=== PATIENT | male | born 1995 | race Caucasian/White ===

== ENCOUNTER 2019-09-22 02:59 | Emergency (ER) | payer OTHER ==
--- NOTE | 2019-09-22 03:55 | ER ---
Nurse's Notes [facility] Name: Tank Aviles Age: 23 yrs Sex: Male : 1995 Arrival Date: 09/22/2019 Time: 03:02 Bed 17 Private MD: Diagnosis: Otitis media, unspecified, bilateral;Otitis externa;Otitis externa in other diseases classified elsewhere, bilateral Presentation: 09/22 03:10 Presenting complaint: Patient states: he woke up yesterday with L ear pain which has aa1 gotten significantly worse this morning and now both ears are bothering him. Transition of care: patient was not received from another setting of care. Onset of symptoms was September 21, 2019. Risk Assessment: Do you want to hurt yourself or someone else? Patient reports no desire to harm self or others. Initial Sepsis Screen: Does the patient meet any 2 criteria? No. Patient's initial sepsis screen is negative. Does the patient have a suspected source of infection? No. Patient's initial sepsis screen is negative. Care prior to arrival: None. 03:10 Method Of Arrival: Ambulatory aa1 03:10 Acuity: MARKOS 4 aa1 Triage Assessment: 03:18 General: Appears in no apparent distress. comfortable, Behavior is calm, cooperative, aa1 appropriate for age. Historical: - Allergies: 03:18 No Known Allergies; aa1 - Home Meds: 03:18 None [Active]; aa1 - PMHx: 03:18 None; aa1 - PSHx: 03:18 None; aa1 - Immunization history:: Flu vaccine is not up to date. - Social history:: Smoking status: Patient/guardian denies using tobacco. - Ebola Screening: : No symptoms or risks identified at this time. - Family history:: not pertinent. Screenin:25 Abuse screen: Denies threats or abuse. Denies injuries from another. Nutritional wh screening: No deficits noted. Tuberculosis screening: No symptoms or risk factors identified. Fall Risk None identified. Assessment: 03:26 General: Appears in no apparent distress. Behavior is calm, cooperative, appropriate wh for age. Pain: Complains of pain in right ear and left ear Pain does not radiate. Pain currently is 4 out of 10 on a pain scale. Pain began 2-3 days ago. Neuro: Level of Consciousness is awake, alert, obeys commands, Oriented to person, place, time, situation, Appropriate for age. Cardiovascular: Heart tones S1 S2. Respiratory: Airway is patent Respiratory effort is even, unlabored, Respiratory pattern is regular, symmetrical, Breath sounds are clear bilaterally. GI: Abdomen is flat, non-distended. : No signs and/or symptoms were reported regarding the genitourinary system. EENT: Ear canal. Derm: Skin is intact, is healthy with good turgor, Skin is pink, warm \T\ dry. normal. Musculoskeletal: Circulation, motion, and sensation intact. 04:11 Reassessment: pt mother is now at the bedside requesting pain medication for pt, Dr. quynh Rutledge notified. 04:22 Reassessment: Patient appears in no apparent distress at this time. No changes from previously documented assessment. Patient and/or family updated on plan of care and expected duration. Pain level reassessed. Patient is alert, oriented x 3, equal unlabored respirations, skin warm/dry/pink. Vital Signs: 03:18 BP 129 / 85; Pulse 83; Resp 16; Temp 98.6; Pulse Ox 100% on R/A; Weight 108.86 kg; aa1 Height 5 ft. 10 in. (177.80 cm); Pain 5/10; 04:15 BP 109 / 72; Pulse 81; Resp 18; Pulse Ox 99% on R/A; wh 03:18 Body Mass Index 34.44 (108.86 kg, 177.80 cm) aa1 ED Course: 03:02 Patient arrived in ED. as 03:14 Triage completed. aa1 03:16 Zenon Che is Primary Nurse. 03:18 Arm band placed on right wrist. Patient placed in an exam room, on a stretcher. aa1 03:23 Nadeem Rutledge MD is Attending Physician. trung 03:25 Patient has correct armband on for positive identification. Bed in low position. Call light in reach. Side rails up X 1. Pulse ox on. NIBP on. 03:53 Myriam Bowman MD is Referral Physician. trung 04:21 No provider procedures requiring assistance completed. Patient did not have IV access during this emergency room visit. Administered Medications: 04:11 Drug: Rocephin (cefTRIAXone) 1 grams Route: IM; Site: left gluteus; ak1 04:36 Follow up: Response: No adverse reaction 04:20 Drug: [place] 10 mg-325 mg 1 tabs Route: PO; 04:36 Follow up: Response: No adverse reaction; Pain is decreased; RASS: Alert and Calm (0) Outcome: 03:54 Discharge ordered by . trung 04:37 Discharged to home ambulatory, with family. 04:37 Condition: stable 04:37 Discharge instructions given to patient, family, Instructed on discharge instructions, follow up and referral plans. no drinking with medication, no driving heavy equipment, medication usage, POC Demonstrated understanding of instructions, follow-up care, medications, POC Prescriptions given X 4. 04:38 Patient left the ED. Signatures: Aida Rogers RN RN ld1 Nadeem Rutledge MD MD cha Martinez, Amelia as Krenek, Amber, RN RN ak1 Zenon Che
--- NOTE | 2019-09-22 03:55 | EDPHYS ---
Physician Documentation [facility] Name: Tank Aviles Age: 23 yrs Sex: Male : 1995 Arrival Date: 09/22/2019 Time: 03:02 Bed 17 Private MD: CARIDAD Physician Nadeem Rutledge HPI: 09/22 03:48 This 23 yrs old Male presents to ER via Ambulatory with complaints of Ear trung Pain. 03:48 The patient presents with drainage, a fullness. The complaints affect the right ear and trung left ear. Onset: The symptoms/episode began/occurred yesterday. Modifying factors: The symptoms are alleviated by nothing, the symptoms are aggravated by nothing. Associated signs and symptoms: Pertinent positives: cough, rhinorrhea, sinus trouble. Severity of symptoms: At their worst the symptoms were mild moderate. Historical: - Allergies: 03:18 No Known Allergies; aa1 - Home Meds: 03:18 None [Active]; aa1 - PMHx: 03:18 None; aa1 - PSHx: 03:18 None; aa1 - Immunization history:: Flu vaccine is not up to date. - Social history:: Smoking status: Patient/guardian denies using tobacco. - Ebola Screening: : No symptoms or risks identified at this time. - Family history:: not pertinent. ROS: 03:48 Constitutional: Negative for fever, chills, and weight loss, Eyes: Negative for injury, trung pain, redness, and discharge, Neck: Negative for injury, pain, and swelling, Cardiovascular: Negative for chest pain, palpitations, and edema, Respiratory: Negative for shortness of breath, cough, wheezing, and pleuritic chest pain, Abdomen/GI: Negative for abdominal pain, nausea, vomiting, diarrhea, and constipation, Back: Negative for injury and pain, : Negative for injury, bleeding, discharge, and swelling, MS/Extremity: Negative for injury and deformity, Skin: Negative for injury, rash, and discoloration, Neuro: Negative for headache, weakness, numbness, tingling, and seizure, Psych: Negative for depression, anxiety, suicide ideation, homicidal ideation, and hallucinations, Allergy/Immunology: Negative for hives, rash, and allergies, Endocrine: Negative for neck swelling, polydipsia, polyuria, polyphagia, and marked weight changes, Hematologic/Lymphatic: Negative for swollen nodes, abnormal bleeding, and unusual bruising. 03:48 ENT: Positive for ear pain, rhinorrhea, sinus congestion. Exam: 03:48 Constitutional: This is a well developed, well nourished patient who is awake, alert, trung and in no acute distress. Head/Face: Normocephalic, atraumatic. Eyes: Pupils equal round and reactive to light, extra-ocular motions intact. Lids and lashes normal. Conjunctiva and sclera are non-icteric and not injected. Cornea within normal limits. Periorbital areas with no swelling, redness, or edema. Neck: Trachea midline, no thyromegaly or masses palpated, and no cervical lymphadenopathy. Supple, full range of motion without nuchal rigidity, or vertebral point tenderness. No Meningismus. Chest/axilla: Normal chest wall appearance and motion. Nontender with no deformity. No lesions are appreciated. Cardiovascular: Regular rate and rhythm with a normal S1 and S2. No gallops, murmurs, or rubs. Normal PMI, no JVD. No pulse deficits. Respiratory: Lungs have equal breath sounds bilaterally, clear to auscultation and percussion. No rales, rhonchi or wheezes noted. No increased work of breathing, no retractions or nasal flaring. Abdomen/GI: Soft, non-tender, with normal bowel sounds. No distension or tympany. No guarding or rebound. No evidence of tenderness throughout. Back: No spinal tenderness. No costovertebral tenderness. Full range of motion. Male : Normal genitalia with no discharge or lesions. Skin: Warm, dry with normal turgor. Normal color with no rashes, no lesions, and no evidence of cellulitis. MS/ Extremity: Pulses equal, no cyanosis. Neurovascular intact. Full, normal range of motion. Neuro: Awake and alert, GCS 15, oriented to person, place, time, and situation. Cranial nerves II-XII grossly intact. Motor strength 5/5 in all extremities. Sensory grossly intact. Cerebellar exam normal. Normal gait. Psych: Awake, alert, with orientation to person, place and time. Behavior, mood, and affect are within normal limits. 03:48 ENT: Ear canal(s): erythema, swelling, that is minimal, of the left canal, TM's: dullness, bilaterally, erythema, that is mild, that is moderate, on the right, on the left. Vital Signs: 03:18 BP 129 / 85; Pulse 83; Resp 16; Temp 98.6; Pulse Ox 100% on R/A; Weight 108.86 kg; aa1 Height 5 ft. 10 in. (177.80 cm); Pain 5/10; 04:15 BP 109 / 72; Pulse 81; Resp 18; Pulse Ox 99% on R/A; wh 03:18 Body Mass Index 34.44 (108.86 kg, 177.80 cm) aa1 MDM: 03:23 Patient medically screened. [facility] 03:53 Data reviewed: vital signs, nurses notes. trung Administered Medications: 04:11 Drug: Rocephin (cefTRIAXone) 1 grams Route: IM; Site: left gluteus; ak1 04:36 Follow up: Response: No adverse reaction 04:20 Drug: [place] 10 mg-325 mg 1 tabs Route: PO; 04:36 Follow up: Response: No adverse reaction; Pain is decreased; RASS: Alert and Calm (0) Disposition: 09/22/19 03:54 Discharged to Home. Impression: Otitis media, unspecified, bilateral, Otitis externa, Otitis externa in other diseases classified elsewhere, bilateral. - Condition is Stable. - Discharge Instructions: Ear Drops, Adult, Otitis Media, Adult, Otitis Externa, Otitis Externa, [id number], Otitis Media, Adult, [id number], Ear Drops, Adult, [id number]. - Prescriptions for Augmentin 875- 125 mg Oral Tablet - take 1 tablet by ORAL route every 12 hours for 10 days; 20 tablet. Samira- D 12 Hour 60-120 mg Oral Tablet Sustained Release 12 hr - take 1 tablet by ORAL route every 12 hours As needed; 20 tablet. Ciprodex 0.3- 0.1 % Otic Drops, Suspension - instill 4 drop by OTIC route every 12 hours for 7 days , for ears ONLY; 1 Container. Tylenol- Codeine #3 300-30 mg Oral Tablet - take 2 tablets by ORAL route every 6 hours As needed; 20 tablet. - Medication Reconciliation Form, Thank You Letter, Antibiotic Education, Prescription Opioid Use, Work release form form. - Follow up: Private Physician; When: 2 - 3 days; Reason: Recheck today's complaints, Continuance of care, Re-evaluation by your physician. Follow up: Myriam Bowman MD; When: 2 - 3 days; Reason: Recheck today's complaints, Re-evaluation by your physician. - Problem is new. - Symptoms have improved. Signatures: Aida Rogers, RN RN aa1 Nadeem Rutledge MD MD cha Krenek, Amber RN RN ak1 Zenon Che Corrections: (The following items were deleted from the chart) 04:38 03:54 09/22/2019 03:54 Discharged to Home. Impression: Otitis media, unspecified, wh bilateral; Otitis externa; Otitis externa in other diseases classified elsewhere, bilateral. Condition is Stable. Forms are Medication Reconciliation Form, Thank You Letter, Antibiotic Education, Prescription Opioid Use. Follow up: Private Physician; When: 2 - 3 days; Reason: Recheck today's complaints, Continuance of care, Re-evaluation by your physician. Follow up: Myriam Bowman; When: 2 - 3 days; Reason: Recheck today's complaints, Re-evaluation by your physician. Problem is new. Symptoms have improved. trung
[2019-09-22] MEDS ORDERED: CEFTRIAXONE 1000 MG/VIAL ONE (04:02)
[2019-09-22] MEDS ORDERED: HYDROCODONE/APAP 10/325 TAB ONE (04:30)
[2019-09-22 05:04] VITALS: TEMP 98.6
[2019-09-22 05:05] VITALS: BP 109/72; O2SAT 99
== END 2019-09-22 04:38 | disposition home or self-care (01) ==
LOC: ER 02:59
DX: H66.93 Otitis media, unspecified, bilateral (principal); H62.43 Otitis externa in other diseases classified elsewhere, bilateral
CPT/HCPCS: 96372; 99283